=== PATIENT | male | born 1985 | race Two or more races ===

== ENCOUNTER 2021-07-22 15:38 | Emergency (ER) | payer OTHER ==
[~2021-07-22] VITALS: Ht 172.7 cm; Wt 68.0 kg
[2021-07-22] MEDS ORDERED: MAGNESIUM CITRATE 296 ML BOTTLE PO ONE (16:00)
[2021-07-22] MEDS ORDERED: MAGNESIUM CITRATE 296 ML BOTTLE ONE (16:00)
[2021-07-22] MEDS ORDERED: DOCU-141 PO (16:13)
[2021-07-22] MEDS ORDERED: KETOROLAC TROMETHAMINE 30 MG INJ IM ONE (16:15)
[2021-07-22] MEDS ORDERED: KETOROLAC TROMETHAMINE 30 MG INJ ONE (16:21)
--- NOTE | 2021-07-22 18:14 | NUR ---
pt had serious release of stool, no longer pale, pain now 3-11/09
--- NOTE | 2021-07-22 19:10 | NUR ---
RECEIVED REPORT FROM TEODORO RIOS. PT NOTED TO BE IN [place] BED, DENIES ANY PAIN/DISCOMFORT. A/O X4, NO SOB OR LABORED BREATHING, AFEBRILE.
--- NOTE | 2021-07-22 19:38 | NUR ---
Patient discharged to home in stable condition. Written and verbal after care instructions given. Patient verbalizes understanding of instructions. Stressed follow up or return to ER for worsening s/s. Steady gait, denies any n/v/d. Accompanied by significant other.
[2021-07-22 19:39] VITALS: BP 122/78
== END 2021-07-22 19:39 | disposition home or self-care (01) ==
LOC: ER 15:43
DX: K59.00 Constipation, unspecified (principal); Z98.890 Other specified postprocedural states
CPT/HCPCS: 96372; 99283; J1885; A4663

== ENCOUNTER 2021-10-16 01:05 | Emergency (ER) | payer SELFPAY ==
[~2021-10-16] VITALS: Ht 172.7 cm; Wt 77.1 kg
[~2021-10-16 01:05] MED LIST: DOCU-141 PO
--- NOTE | 2021-10-16 01:29 | NUR ---
patient in room 3. c/o left index finger laceration
--- NOTE | 2021-10-16 01:29 | NUR ---
DR Beltre in room for ARMOND
[2021-10-16] MEDS ORDERED: LIDOCAINE HCL 2% 20 ML VIAL IJ ONE (01:30)
[2021-10-16] MEDS ORDERED: OXYC-128 PO (02:21)
--- NOTE | 2021-10-16 02:25 | NUR ---
patient was medicated with percocet. provided rx. Patient discharged to home in stable condition. Written and verbal after care instructions given. Patient verbalizes understanding of instructions. Stressed follow up or return to ER for worsening s/s.
[2021-10-16 02:26] VITALS: BP 128/77
[2021-10-16] MEDS ORDERED: OXYCODONE/APAP 5-325 MG TABLET PO ONE (02:30)
[2021-10-16] MEDS ORDERED: OXYCODONE/APAP 5-325 MG TABLET ONE (02:31)
== END 2021-10-16 02:27 | disposition home or self-care (01) ==
LOC: ER 01:12
DX: S61.211A Laceration without foreign body of left index finger without damage to nail, initial encounter (principal); W26.0XXA Contact with knife, initial encounter; Y92.89 Other specified places as the place of occurrence of the external cause
CPT/HCPCS: 12001; 99283; J3490; A4663

== ENCOUNTER 2023-08-07 21:11 | Emergency (ER) | payer BC, OTHER ==
[~2023-08-07] VITALS: Ht 172.7 cm; Wt 68.0 kg
[~2023-08-07 21:11] MED LIST changes: +OXYC-128 PO
[2023-08-07 22:21] LABS: BASOPHILS # (AUTO) 0.2 K/UL (0.0-0.2); BASOPHILS % (AUTO) 2.5 % (0.0-2.0); EOSINOPHILS # (AUTO) 0.2 K/uL (0.0-0.7); EOSINOPHILS % (AUTO) 1.8 % (0.0-7.0); HEMATOCRIT 43.2 % (36.7-47.1); HEMOGLOBIN 14.6 g/dL (12.5-16.3); LYMPHOCYTES # (AUTO) 1.7 K/uL (0.8-4.8); LYMPHOCYTES % (AUTO) 19.8 % (20.5-51.5); MEAN CORPUSCULAR HEMOGLOBIN 28.3 uug (23.8-33.4); MEAN CORPUSCULAR HGB CONC 34 g/dL (32.5-36.3); MEAN CORPUSCULAR VOLUME 83.5 fL (73.0-96.2); MONOCYTES # (AUTO) 0.4 K/uL (0.1-1.30); MONOCYTES % (AUTO) 4.4 % (0.0-11.0); NEUTROPHILS # (AUTO) 6.1 K/uL (1.8-8.9); NEUTROPHILS % (AUTO) 71.5 % (38.5-71.5); PLATELET COUNT (AUTO) 312 K/uL (152-348); RED BLOOD CELL COUNT(AUTO) 5.17 MIL/uL (4.06-5.63); RED CELL DISTRIBUTION WIDTH 13.7 % (12.1-16.2); WHITE BLOOD COUNT (AUTO) 8.5 K/uL (3.6-10.2)
[2023-08-07 22:30] LABS: CALCIUM 9.2 mg/dL (8.5-10.1)
[2023-08-07 22:35] LABS: DIFFERENTIAL COMMENT 1
[2023-08-07 22:36] LABS: BILIRUBIN,TOTAL 0.4 mg/dL (0.2-1.0); C-REACTIVE PROTEIN 0.07 mg/dL (0.00-0.30); TOTAL PROTEIN, SERUM 7.7 g/dL (6.4-8.2)
[2023-08-07] MEDS ORDERED: LIDO30CR20 TP (22:48)
[2023-08-07 22:56] VITALS: BP 120/76; TEMP 97.6; O2SAT 99
== END 2023-08-07 23:03 | disposition home or self-care (01) ==
LOC: ER 21:15
DX: K62.89 Other specified diseases of anus and rectum (principal); M53.3 Sacrococcygeal disorders, not elsewhere classified; R19.7 Diarrhea, unspecified; Z79.899 Other long term (current) drug therapy
CPT/HCPCS: 36415; 72192; 85025; 86140; A4606; A4663